=== PATIENT | female | born 1960 | race African-American/Black ===

== ENCOUNTER 2017-09-16 17:32 | Inpatient (IN) ==
[2017-09-16] MEDS ORDERED: ONDANSETRON 4 MG/2 ML VIAL IV PRN (19:12)
[2017-09-16] MEDS ORDERED: DEXTROSE 50% 25 GM/50 ML VIAL IV PRN (19:12)
[2017-09-16] MEDS ORDERED: GLUCAGON 1 MG VIAL IM PRN (19:12)
[2017-09-16] MEDS ORDERED: LABETALOL 20 MG/4 ML SYRINGE IV PRN (19:13)
[2017-09-16 19:23] LABS: Basophils % 0.2 % (0.0-0.8); Eosinophils % 0.1 % (0.00-10.9); Hematocrit 33.2 VOL% (35.7-47.0); Hemoglobin 12.1 GM/DL (12.0-16.0); Immature Granulocytes % 0.6 %; Immature Granulocytes Absolute 0.07 #; Lymphocytes # 1.3 10*3/uL (1.4-4.0); Lymphocytes % 10.9 % (21.3-54.2); Mean Corpuscular HGB Conc 36.4 GM/DL (32-36); Mean Corpuscular Hemoglobin 32 PG (27-34); Mean Corpuscular Volume 88.1 FL (87-102); Mean Platelet Volume 10.3 FL (9.6-12.0); Monocytes # 1.2 10*3/uL (0.11-0.8); Monocytes % 9.4 % (1.7-12.7); Neutrophils # 9.8 10*3/uL (1.4-7.4); Neutrophils % 78.8 % (38.7-73.9); Platelet Count 438 T/CUMM (130-400); Red Blood Count 3.77 MC/CUMM (3.8-5.5); White Blood Count 12.4 T/CUMM (4-12)
[2017-09-16 19:41] LABS: Calcium 8.3 MG/DL (8.5-10.1); Osmolality,Calculated 243.1 MOS/KG (273-304); Potassium 3.7 MMOL/L (3.5-5.1); Thyroid Stimulating Hormone 0.905 uIU/ml (0.358-3.74)
[2017-09-16 19:45] LABS: Risk Ratio 3.21; VLDL CHOLESTEROL 18.8 MG/DL
[2017-09-16] MEDS: INSULIN REGULAR 100 UNIT/ML SUBCUT SCH (20:55)
[2017-09-16] MEDS: ENOXAPARIN 40 MG/0.4 ML SYRINGE SUBCUT SCH (21:27)
[2017-09-16] MEDS: levETIRAcetam 500 MG TABLET PO SCH (21:28)
[2017-09-16] MEDS: ATORVASTATIN 40 MG TABLET PO SCH (21:28)
[2017-09-17 07:00] LABS: Basophils % 0.4 % (0.0-0.8); Eosinophils # 0.1 10*3/uL (0.0-0.87); Eosinophils % 0.6 % (0.00-10.9); Hematocrit 31.1 VOL% (35.7-47.0); Hemoglobin 11.1 GM/DL (12.0-16.0); Immature Granulocytes % 0.4 %; Immature Granulocytes Absolute 0.03 #; Lymphocytes # 1.1 10*3/uL (1.4-4.0); Lymphocytes % 14.2 % (21.3-54.2); Mean Corpuscular HGB Conc 35.7 GM/DL (32-36); Mean Corpuscular Hemoglobin 32 PG (27-34); Mean Corpuscular Volume 90.4 FL (87-102); Monocytes # 1.1 10*3/uL (0.11-0.8); Monocytes % 13.5 % (1.7-12.7); Neutrophils # 5.5 10*3/uL (1.4-7.4); Neutrophils % 70.9 % (38.7-73.9); Platelet Count 336 T/CUMM (130-400); Red Blood Count 3.44 MC/CUMM (3.8-5.5); Red Cell Distribution Width 12.2 % (9.3-17.3); White Blood Count 7.8 T/CUMM (4-12)
[2017-09-17 07:23] LABS: Calcium 8.4 MG/DL (8.5-10.1); Osmolality,Calculated 257.1 MOS/KG (273-304); Potassium 3.6 MMOL/L (3.5-5.1)
[2017-09-17] MEDS: INSULIN REGULAR 100 UNIT/ML SUBCUT SCH ×4 (09:26→20:57)
[2017-09-17] MEDS: ASPIRIN 325 MG TABLET PO SCH (09:27)
[2017-09-17] MEDS: levETIRAcetam 500 MG TABLET PO SCH ×2 (09:28→20:57)
[2017-09-17 11:04] LABS: Calcium 8.7 MG/DL (8.5-10.1); Osmolality,Calculated 260.8 MOS/KG (273-304); Potassium 3.5 MMOL/L (3.5-5.1)
[2017-09-17] MEDS: ACETAMINOPHEN 325 MG TABLET PO PRN ×2 (12:08→16:29)
[2017-09-17] MEDS ORDERED: DEXTROSE 5% 1,000 ML IV SCH ×2 (12:30→15:30)
[2017-09-17] MEDS: LORazepam 2 MG/1 ML VIAL IV PRN ×2 (18:20→21:23)
[2017-09-17] MEDS: ATORVASTATIN 40 MG TABLET PO SCH (20:57)
[2017-09-17] MEDS: DONEPEZIL 5 MG TABLET PO SCH (20:57)
[2017-09-17] MEDS: ENOXAPARIN 40 MG/0.4 ML SYRINGE SUBCUT SCH (20:58)
[2017-09-18] MEDS: LORazepam 2 MG/1 ML VIAL IV PRN ×4 (02:59→22:50)
[2017-09-18] MEDS: levETIRAcetam 500 MG TABLET PO SCH ×2 (08:55→21:08)
[2017-09-18] MEDS: INSULIN REGULAR 100 UNIT/ML SUBCUT SCH ×4 (08:55→21:07)
[2017-09-18] MEDS: ASPIRIN 325 MG TABLET PO SCH (08:55)
[2017-09-18 10:09] LABS: Basophils # 0.1 10*3/uL (0.0-0.2); Basophils % 0.8 % (0.0-0.8); Eosinophils # 0.3 10*3/uL (0.0-0.87); Eosinophils % 2.9 % (0.00-10.9); Hematocrit 33.1 VOL% (35.7-47.0); Hemoglobin 11.4 GM/DL (12.0-16.0); Immature Granulocytes % 0.3 %; Immature Granulocytes Absolute 0.03 #; Lymphocytes # 1.5 10*3/uL (1.4-4.0); Lymphocytes % 17.3 % (21.3-54.2); Mean Corpuscular HGB Conc 34.4 GM/DL (32-36); Mean Corpuscular Hemoglobin 33 PG (27-34); Mean Corpuscular Volume 94.6 FL (87-102); Mean Platelet Volume 10.4 FL (9.6-12.0); Monocytes # 0.9 10*3/uL (0.11-0.8); Monocytes % 10.3 % (1.7-12.7); Neutrophils % 68.4 % (38.7-73.9); Platelet Count 377 T/CUMM (130-400); Red Cell Distribution Width 12.4 % (9.3-17.3); White Blood Count 8.8 T/CUMM (4-12)
[2017-09-18 10:35] LABS: Calcium 8.8 MG/DL (8.5-10.1); Osmolality,Calculated 259.7 MOS/KG (273-304); Potassium 3.3 MMOL/L (3.5-5.1)
[2017-09-18] MEDS: LORazepam 1 MG TABLET PO PRN (11:23)
[2017-09-18] MEDS ORDERED: POTASSIUM CHLORIDE 20 MEQ TABLET PO ONE (14:15)
[2017-09-18] MEDS: ATORVASTATIN 40 MG TABLET PO SCH (21:08)
[2017-09-18] MEDS: DONEPEZIL 5 MG TABLET PO SCH (21:08)
[2017-09-18] MEDS: ENOXAPARIN 40 MG/0.4 ML SYRINGE SUBCUT SCH (21:08)
[2017-09-19 05:40] LABS: Calcium 8.2 MG/DL (8.5-10.1); Osmolality,Calculated 268.1 MOS/KG (273-304); Potassium 3.7 MMOL/L (3.5-5.1)
[2017-09-19] MEDS: INSULIN REGULAR 100 UNIT/ML SUBCUT SCH ×4 (09:32→21:26)
[2017-09-19] MEDS: ASPIRIN 325 MG TABLET PO SCH (09:46)
[2017-09-19] MEDS: levETIRAcetam 500 MG TABLET PO SCH ×2 (09:46→21:25)
[2017-09-19] MEDS: LORazepam 1 MG TABLET PO PRN ×3 (09:48→21:25)
[2017-09-19] MEDS: ATORVASTATIN 40 MG TABLET PO SCH (21:25)
[2017-09-19] MEDS: DONEPEZIL 5 MG TABLET PO SCH (21:26)
[2017-09-19] MEDS: ENOXAPARIN 40 MG/0.4 ML SYRINGE SUBCUT SCH (21:26)
[2017-09-19] MEDS: risperiDONE 0.5 MG TABLET PO PRN (21:26)
[2017-09-20] MEDS ORDERED: TUBERCULIN SKIN TEST 0.1 ML SYRINGE INTRADERM ONE (08:53)
[2017-09-20] MEDS: levETIRAcetam 500 MG TABLET PO SCH ×2 (09:26→21:24)
[2017-09-20] MEDS: ASPIRIN 325 MG TABLET PO SCH (09:26)
[2017-09-20] MEDS: LORazepam 1 MG TABLET PO PRN ×3 (09:26→21:24)
[2017-09-20] MEDS: INSULIN REGULAR 100 UNIT/ML SUBCUT SCH ×4 (09:26→21:24)
[2017-09-20] MEDS: ACETAMINOPHEN 325 MG TABLET PO PRN (15:26)
[2017-09-20] MEDS: ATORVASTATIN 40 MG TABLET PO SCH (21:23)
[2017-09-20] MEDS: ENOXAPARIN 40 MG/0.4 ML SYRINGE SUBCUT SCH (21:24)
[2017-09-20] MEDS: DONEPEZIL 5 MG TABLET PO SCH (21:24)
[2017-09-21] MEDS: INSULIN REGULAR 100 UNIT/ML SUBCUT SCH ×4 (09:07→22:00)
[2017-09-21] MEDS: levETIRAcetam 500 MG TABLET PO SCH ×2 (09:08→21:10)
[2017-09-21] MEDS: ASPIRIN 325 MG TABLET PO SCH (09:08)
[2017-09-21] MEDS: LORazepam 1 MG TABLET PO PRN ×3 (13:14→21:11)
[2017-09-21] MEDS: ACETAMINOPHEN 325 MG TABLET PO PRN ×2 (13:14→19:34)
[2017-09-21 13:57] LABS: Osmolality, Serum 248 mOsm/kg (275 - 295)
[2017-09-21 14:25] LABS: Osmolality, Urine 173 mOsm/kg (150 - 1150)
[2017-09-21] MEDS: ATORVASTATIN 40 MG TABLET PO SCH (21:10)
[2017-09-21] MEDS: DONEPEZIL 5 MG TABLET PO SCH (21:10)
[2017-09-21] MEDS: ENOXAPARIN 40 MG/0.4 ML SYRINGE SUBCUT SCH (21:11)
[2017-09-22] MEDS: ACETAMINOPHEN 325 MG TABLET PO PRN ×3 (03:37→17:22)
[2017-09-22] MEDS: INSULIN REGULAR 100 UNIT/ML SUBCUT SCH ×4 (08:53→21:48)
[2017-09-22] MEDS: ASPIRIN 325 MG TABLET PO SCH (09:32)
[2017-09-22] MEDS: LORazepam 1 MG TABLET PO PRN ×3 (09:32→21:48)
[2017-09-22] MEDS: levETIRAcetam 500 MG TABLET PO SCH ×2 (09:32→21:48)
[2017-09-22] MEDS: DONEPEZIL 5 MG TABLET PO SCH (21:48)
[2017-09-22] MEDS: ATORVASTATIN 40 MG TABLET PO SCH (21:48)
[2017-09-22] MEDS: ENOXAPARIN 40 MG/0.4 ML SYRINGE SUBCUT SCH (21:48)
[2017-09-23] MEDS: INSULIN REGULAR 100 UNIT/ML SUBCUT SCH ×4 (08:08→20:43)
[2017-09-23] MEDS: ASPIRIN 325 MG TABLET PO SCH (09:22)
[2017-09-23] MEDS: ACETAMINOPHEN 325 MG TABLET PO PRN ×2 (09:22→15:44)
[2017-09-23] MEDS: levETIRAcetam 500 MG TABLET PO SCH ×2 (09:22→20:51)
[2017-09-23] MEDS: ATORVASTATIN 40 MG TABLET PO SCH (20:50)
[2017-09-23] MEDS: DONEPEZIL 5 MG TABLET PO SCH (20:51)
[2017-09-23] MEDS: ENOXAPARIN 40 MG/0.4 ML SYRINGE SUBCUT SCH (20:51)
[2017-09-23] MEDS: LORazepam 1 MG TABLET PO PRN (20:51)
[2017-09-24] MEDS: ASPIRIN 325 MG TABLET PO SCH (08:32)
[2017-09-24] MEDS: levETIRAcetam 500 MG TABLET PO SCH ×2 (08:32→21:10)
[2017-09-24] MEDS: INSULIN REGULAR 100 UNIT/ML SUBCUT SCH ×4 (09:46→21:10)
[2017-09-24] MEDS: ACETAMINOPHEN 325 MG TABLET PO PRN ×3 (12:28→21:09)
[2017-09-24] MEDS: ONDANSETRON 4 MG TABLET PO PRN (14:33)
[2017-09-24] MEDS: LORazepam 1 MG TABLET PO PRN (16:13)
[2017-09-24] MEDS: ATORVASTATIN 40 MG TABLET PO SCH (21:09)
[2017-09-24] MEDS: risperiDONE 0.5 MG TABLET PO PRN (21:10)
[2017-09-24] MEDS: ENOXAPARIN 40 MG/0.4 ML SYRINGE SUBCUT SCH (21:10)
[2017-09-24] MEDS: DONEPEZIL 5 MG TABLET PO SCH (21:10)
[2017-09-25] MEDS: INSULIN REGULAR 100 UNIT/ML SUBCUT SCH ×4 (07:21→20:02)
[2017-09-25] MEDS: levETIRAcetam 500 MG TABLET PO SCH ×2 (08:09→20:01)
[2017-09-25] MEDS: ASPIRIN 325 MG TABLET PO SCH (08:09)
[2017-09-25] MEDS: ACETAMINOPHEN 325 MG TABLET PO PRN ×3 (08:11→22:15)
[2017-09-25] MEDS: traMADol 50 MG TABLET PO PRN ×2 (10:20→20:01)
[2017-09-25] MEDS: LORazepam 1 MG TABLET PO PRN (15:57)
[2017-09-25] MEDS: ONDANSETRON 4 MG TABLET PO PRN (20:01)
[2017-09-25] MEDS: ATORVASTATIN 40 MG TABLET PO SCH (20:01)
[2017-09-25] MEDS: DONEPEZIL 5 MG TABLET PO SCH (20:01)
[2017-09-25] MEDS: ENOXAPARIN 40 MG/0.4 ML SYRINGE SUBCUT SCH (20:02)
[2017-09-26] MEDS: traMADol 50 MG TABLET PO PRN ×3 (03:19→19:45)
[2017-09-26 06:10] LABS: Calcium 8.2 MG/DL (8.5-10.1); Potassium 3.9 MMOL/L (3.5-5.1)
[2017-09-26] MEDS: INSULIN REGULAR 100 UNIT/ML SUBCUT SCH ×4 (08:05→22:39)
[2017-09-26] MEDS: ASPIRIN 325 MG TABLET PO SCH (11:00)
[2017-09-26] MEDS: levETIRAcetam 500 MG TABLET PO SCH ×2 (11:00→21:22)
[2017-09-26] MEDS: ACETAMINOPHEN 325 MG TABLET PO PRN (13:42)
[2017-09-26] MEDS: ONDANSETRON 4 MG TABLET PO PRN ×2 (13:44→19:46)
[2017-09-26] MEDS: risperiDONE 0.5 MG TABLET PO PRN (21:22)
[2017-09-26] MEDS: ATORVASTATIN 40 MG TABLET PO SCH (21:22)
[2017-09-26] MEDS: DONEPEZIL 5 MG TABLET PO SCH (21:22)
[2017-09-26] MEDS: ENOXAPARIN 40 MG/0.4 ML SYRINGE SUBCUT SCH (21:23)
[2017-09-27] MEDS: INSULIN REGULAR 100 UNIT/ML SUBCUT SCH ×3 (09:31→19:19)
[2017-09-27] MEDS: ASPIRIN 325 MG TABLET PO SCH (09:32)
[2017-09-27] MEDS: levETIRAcetam 500 MG TABLET PO SCH (09:32)
[2017-09-27] MEDS: traMADol 50 MG TABLET PO PRN (09:36)
[2017-09-27] MEDS: ACETAMINOPHEN 325 MG TABLET PO PRN ×2 (11:35→16:14)
[2017-09-27 16:59] VITALS: BP 126/69
== END 2017-09-27 20:35 | disposition home or self-care (01) | DRG 641 ==
LOC: N.ED 17:32 → N.EDINP 18:36 → SUATTDRO 18:36 → N.5E 19:30
PROVIDERS: ADMIT Internal Medicine; ATTEND Internal Medicine